=== PATIENT | female | born 1940 | race African-American/Black ===

== ENCOUNTER 2018-07-25 08:51 | Emergency (ER) | payer OTHER ==
[~2018-07-25] VITALS: Ht 160 cm; Wt 89.8 kg
[2018-07-25] MEDS ORDERED: VICODIN 5-3001 EACH PO (11:46)
== END 2018-07-25 11:55 | disposition home or self-care (01) ==
LOC: ED 08:51
DX: M25.512 Pain in left shoulder (principal); W01.0XXA Fall on same level from slipping, tripping and stumbling without subsequent striking against object, initial encounter; Y93.89 Activity, other specified; Y92.89 Other specified places as the place of occurrence of the external cause; Y99.8 Other external cause status